=== PATIENT | female | born 1965 | race Caucasian/White ===

== ENCOUNTER 2017-03-19 12:34 | Day surgery (SDC) | payer BC ==
[~2017-03-19] VITALS: Ht 171.4 cm; Wt 81.9 kg
[~2017-03-19 12:34] MED LIST: SERT100T PO
[2017-03-19] MEDS ORDERED: OMEP40CA6 PO (15:20)
[2017-03-19 15:21] VITALS: Ht 171.4 cm; Wt 81.9 kg
[2017-03-19 17:29] VITALS: BP 153/71; PULSE 69; RESP 16
[2017-03-19] MEDS ORDERED: PROPOFOL 40 ML ONE (17:42)
[2017-03-19 18:35] VITALS: BP 127/83; PULSE 70; RESP 13
--- NOTE | 2017-03-19 21:19 | GILP ---
DATE OF PROCEDURE: 03/19/2017 DATE: 03/19/2017 NAME OF PROCEDURE: Esophagogastroduodenoscopy with biopsies. SURGEON: Liz Badillo MD HISTORY AND INDICATIONS: The patient is being evaluated for dyspepsia. PREMEDICATION: Monitored anesthesia care by anesthesiologist. INSTRUMENT USED: Olympus panendoscope. TECHNIQUE: After informed consent, with the patient/relatives understanding the procedure, its indic ations, potential risks, and complications, including but not limited to: allergic reaction, bleedin g, perforation or infection, and after all pertinent questions were answered to the patient's satisf action, the patient/relatives signed witnessed informed consent. Following this, premedication was administered slowly IV push under careful cardiovascular and respi ratory monitoring with pulse oximetry, automatic blood pressure and preschool aide. Once the sedative effect was achieved the patient was place in the left lateral decubitus, the panen doscope was introduced and advanced under visual control. Careful examination of the upper gastrointestinal tract, both on insertion as well as withdrawal of the instrument disclosed the following findings: ESOPHAGUS: The distal esophagus shows mild erythema and edema of the mucosa. STOMACH: Upon entrance to the stomach air was insufflated, the gastric gómez distended normally. T here are multiple proximal gastric polyps measuring up from 3 to 8 mm. One polyp was biopsied for h istological examination. The distal stomach shows erythema, edema, and superficial erosion of the mucosa. Biopsies were obta ined to rule out H. pylori infection. PYLORUS: The pylorus appears patent and within normal limits, with no evidence of gastric outlet ob struction. DUODENUM: The duodenal mucosa was carefully examined in the duodenal bulb as well as the second por tion of the duodenum and appears unremarkable with no evidence of duodenitis, ulcer, or neoplasm. The instrument was then withdrawn, the patient tolerated the procedure well and was transfer out of the endoscopy suite awake, and in good condition to continue recovery under observation IMPRESSION: 1. Mild distal esophagitis. 2. Multiple proximal gastric polyps. Biopsies obtained. 3. Erosive gastritis. Rule out Helicobacter pylori infection, biopsies obtained. PLAN: The patient will be continued on PPI. Pathology will be reviewed as soon as available. Furt her recommendation will depend on the patient's clinical course as well as review of biopsies. Dictated By: LIZ BADILLO MS/NTS Conf#: [id number] DID#: [id number] CC: LIZ BADILLO;*[facility]*
--- NOTE | 2017-03-19 21:22 | GILP ---
DATE OF PROCEDURE: 03/19/2017 DATE: 03/19/2017 NAME OF PROCEDURE: Colonoscopy with polyp ablation. SURGEON: Renny Badillo MD HISTORY AND INDICATIONS: The patient is being evaluated for surveillance, history of colonic polyps . PREMEDICATION: Monitored anesthesia care by anesthesiologist. INSTRUMENT USED: Olympus colonoscope. PREPARATION: Adequate. TECHNIQUE: After informed consent, with the patient/relatives understanding the procedure, its indic ations potential risks and complications, including but not limited to: allergic reaction, bleeding, perforation, infection, missed lesions, and after all pertinent questions were answered to the estefani ent's satisfaction, the patient/relatives signed the witnessed informed consent. Following this, premedication was administered slowly IV push by under careful cardiovascular and re spiratory monitoring with pulse oximetry, automatic blood pressure and terrazzo journeyman. Once the sedati ve effect was achieved, the patient was placed in the left lateral decubitus position, digital recta l examination was performed. The colonoscope was then introduced and advanced under visual control throughout all segments of the colon including: the rectum, sigmoid, descending colon, splenic flexu re, transverse colon, hepatic flexure, ascending colon and finally reaching the cecum which was ibis rly identified by transillumination, finger indentation and the ileocecal valve. Careful examinatio n of the mucosa of the lower gastrointestinal tract both on insertion as well as withdrawal of the i nstrument disclosed the following findings: Rectal Examination: No evidence of perirectal disease, no masses. Colonic Mucosa: The colonic mucosa is remarkable for the presence of 2 small 3 mm polyps in the dis cesar ascending colon, which were ablated with biopsy forceps. A 5 mm polyp was noted in the proximal ascending colon and was also ablated with jumbo biopsy forceps. The ileocecal valve was clearly id entified and appears unremarkable. The instrument was withdrawn. No additional abnormalities are n oted with exception of moderate sized internal hemorrhoids. The instrument was then withdrawn, the patient tolerated the procedure well and was transferred out of the Endoscopy Suite awake and in good condition to continue recovery under observation. IMPRESSION: 1. A 5 mm polyp proximal ascending colon, ablated. 2. Two small 3 mm polyps in the distal ascending colon, ablated. 3. Moderate sized internal hemorrhoids. PLAN: The patient will follow up as an outpatient and a Hemoccult stool testing is recommended. Gonzalez rveillance colonoscopy in 3 years is recommended pending review of pathology. Dictated By: RENNY BADILLO MS/CLARISSA Conf#: [id number] DID#: [id number] CC: RENNY BADILLO;*End*
== END 2017-03-20 08:17 | disposition home or self-care (01) ==
LOC: GIL 12:34
PROVIDERS: ATTEND Internal Medicine Gastroenterology
DX: K29.50 Unspecified chronic gastritis without bleeding (principal); K31.7 Polyp of stomach and duodenum; D12.2 Benign neoplasm of ascending colon
CPT/HCPCS: 43239; 45380; 84703; 88305; 88312; Z7610